=== PATIENT | male | born 1965 | race Caucasian/White ===

== ENCOUNTER 2022-09-27 10:54 | Outpatient (RCR) | payer OTHER, SELFPAY | END 2023-01-25 23:59 | disposition home or self-care (01) | PROVIDERS: PCP Family Medicine; Visit Provider Family Medicine | DX: R42 Dizziness and giddiness (principal); Z51.89 Encounter for other specified aftercare | CPT/HCPCS: 97110; 97162; 97530 ==

== ENCOUNTER 2023-06-13 08:59 | Outpatient (CLI) | payer OTHER, SELFPAY ==
--- NOTE | 2023-06-13 09:15 | MR_ITS ---
[address] [address] Phone:?[phone] Fax:?[phone] Referring Physician Information: Nicolás Avelar M.D. [address] [facility] [address] Phone:?[phone] Fax:?[phone] Patient:Betsy Soler.O.B:?1965 Sex:?Male Phone:?[phone] [facility] MRN:?[id number] Exam Date:?06/13/2023 EXAM: MRI OF THE RIGHT KNEE CLINICAL INFORMATION: The patient is a 57-year-old with right knee pain. Evaluate for medial meniscal tear. PRIOR SURGERY: None reported. COMPARISON STUDIES: Comparison is made to prior radiographs dated 06/06/2023. TECHNICAL INFORMATION: Imaging was performed on a high-field, 1.5 Blanca MR scanner. Axial proton-density and fat-suppressed T2 imaging was performed in addition to coronal proton-density, T2, and STIR imaging. Sagittal proton- density and fat-suppressed T2 imaging was also produced. FINDINGS: Articular/Extraarticular collections: Effusion: Mild to moderate. Popliteal cyst: None. Loose bodies: None. Subcutaneous and extraarticular soft tissues: Nonspecific subcutaneous soft tissue edema and/or hemorrhage can be seen along the anterior, medial, and lateral aspects of the right knee. Osseous structures: Mild reactive bony changes can be seen along the posterior and medial surfaces of the medial tibial plateau, in keeping with the meniscal tearing and chondral thinning described below. Mild reactive bony changes along the articular surfaces of the patella can be seen, in keeping with chondromalacia and chondral loss discussed below. No other bony abnormalities about the knee are present. There is no evidence for fracture, contusion, or stress injury. Ligamentous structures: ACL: Intact and normal in appearance. PCL: Intact and normal in appearance. MCL: Intact and normal in appearance. LCL: Intact and normal in appearance. Posterolateral corner: Intact and normal in appearance. Posteromedial corner: No posteromedial corner soft tissue injury. Semimembranosus and pes anserine tendons demonstrate no tendinopathy or associated bursitis. Extensor mechanism/Patellar retinacular structures: Patellar tendon: Intact, without tendinopathy. Quadriceps tendon: Tendinosis and splitting of the distal quadriceps tendon can be seen at the patellar insertion. There is no evidence for transverse tearing. Retinacula: The medial and lateral retinacula are intact. The medial patellofemoral ligament is intact. Medial compartment: Medial meniscus: The medial meniscus is abnormal in appearance. There is broad- based, complex tearing of the posterior horn, including oblique radial tearing, seen on sagittal series 5 image 22 and on coronal series 7 image 23. The area of medial meniscal tearing measures approximately 20 mm in mediolateral dimension. Additional degeneration and inferior surface tearing of the middle one third of the medial meniscus can be seen. The anterior horn appears intact. No parameniscal cyst formation is identified. Medial femoral condyle: Grade II to III chondromalacia can be seen along the weightbearing surfaces of the medial femoral condyle. Medial tibial plateau: Grade II chondromalacia can be seen along the weightbearing surfaces of the medial tibial plateau. Lateral compartment: Lateral meniscus: No evidence for lateral meniscal tearing is present. No evidence for parameniscal cyst formation can be seen. Lateral femoral condyle: No chondromalacia, chondral defect, or osteochondral abnormality. Lateral tibial plateau: Grade II to III chondromalacia can be seen along the central and posterior weightbearing surfaces of the lateral tibial plateau. Patellofemoral compartment: Patella: Full-thickness and near full-thickness chondral loss can be seen along the articular surfaces of the patellar apex and lateral facet. Underlying bony changes are present. Trochlea: Grade II to III chondromalacia can be seen along the articular surfaces of the femoral trochlea. Neurovascular: No definite neurovascular abnormalities are seen. CONCLUSION: 1. Broad-based tearing of the middle and posterior portions of the medial meniscus as described above. No lateral meniscal tearing is seen. 2. 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 3. The cruciate and collateral ligaments appear intact. 4. Mild to moderate knee joint effusion. 5. No acute bony abnormalities are identified. AEC Electronically signed on 06/13/2023 2:18:00 PM by Joshua Humphreys M.D.
== END 2023-06-13 09:00 | disposition home or self-care (01) ==
LOC: MRI 08:59
PROVIDERS: PCP Family Medicine; Visit Provider Orthopaedic Surgery
DX: M25.561 Pain in right knee (principal); S83.241A Other tear of medial meniscus, current injury, right knee, initial encounter; M94.261 Chondromalacia, right knee; M25.461 Effusion, right knee
CPT/HCPCS: 73721

== ENCOUNTER 2023-06-27 06:07 | Day surgery (SDC) | payer OTHER, SELFPAY ==
[2023-06-27] VITALS (14 sets, daily range): BP systolic 120–153; BP diastolic 53–110; PULSE 59–70; RESP 14–18; TEMP 36.2–36.6; O2SAT 93–96; BMI 47.4
[2023-06-27] MEDS: SODIUM CHLORIDE 0.9 % (FLUSH) 10 ML SYRINGE IVF (06:30)
[2023-06-27] MEDS: LACTATED RINGERS 1000 ML 1,000 ML 100 ML IV ×2 (06:30→07:52)
[2023-06-27] MEDS: CEFAZOLIN 2 GM INJ IVP (07:51)
[2023-06-27] MEDS: BUPIVACAINE 0.25% 30 ML INJECTION (08:18)
--- NOTE | 2023-06-27 08:18 | PM.ORPRC ---
Procedure Note Date of procedure: 06/27/23 Procedure: PREOPERATIVE DIAGNOSIS: Right knee medial meniscus tear POSTOPERATIVE DIAGNOSIS: Right knee medial meniscus tear NAME OF OPERATION: Right knee arthroscopic partial medial meniscectomy SURGEON: Nicolás Avelar MD APPLIED BEHAVIOR SPECIALIST: Yue Dougherty PA-C ANESTHESIA: General ESTIMATED BLOOD LOSS: 0 mL COMPLICATIONS: None SPECIMENS: None DRAINS: None PREOPERATIVE ANTIBIOTICS: Ancef 3 gram INDICATIONS: The patient is a 57-year-old with a history of right knee medial pain. MRI scan is consistent with a medial meniscus tear. Despite appropriate nonoperative management, including activity modification, antiinflammatories, [id number] pain medication, bracing, physical therapy, and injections they continue to have pain and disability. Operative intervention was offered. The risks, benefits and expected outcomes were discussed in detail. These included but were not limited to: Infection, bleeding, injury to blood vessel or nerve, venous thromboembolism. All questions were answered to their satisfaction. PROCEDURE: Spinal anesthesia was administered. The patient was placed supine on the operating room table. The right lower extremity was prepped and draped in the usual sterile fashion. The limb was exsanguinated with the Matthias bandage. The pneumatic tourniquet was inflated to 300 mmHg. A standard anterolateral portal was established. The arthroscope was introduced. The working portal was established anteromedially. Diagnostic arthroscopy was performed with findings as follows: The suprapatellar pouch is normal. Articular surface on the patella shows diffuse grade 1/2 change. Articular surface on the trochlea shows diffuse grade 2/3 change. The medial gutter is normal. The medial compartment shows focal grade 3 change on the posterior aspect of the medial femoral condyle, grade 1/2 change on the medial tibial plateau. The medial meniscus has a complex degenerative tear of the posterior horn, consisting of a small radial tear off of the root. This does not go to the capsule. There is minimal degenerative undersurface fraying. The root is intact. The notch shows the ACL to be intact. The lateral compartment shows normal articular cartilage on the lateral femoral condyle and lateral tibial plateau. The lateral meniscus is normal. The lateral gutter is normal. The posterior horn of the medial meniscus was debrided to a stable base using a combination of anamika through both portals. Unstable chondral flaps on the medial femoral condyle were debrided with the shaver through both portals, taken to a stable base. Arthroscopic instruments were removed, the portal sites were Steri-Stripped closed, the knee was infiltrated with 30 mL of 0.25% Marcaine without epinephrine. A dry dressing was applied, the tourniquet was released. Sponge and needle counts were correct x 2. The patient tolerated the procedure well. There were no apparent complications. They were carefully transferred to the hospital bed and taken to the postanesthesia care unit in satisfactory condition. PLAN: The patient will be discharged to home. They may weightbear as tolerates. Range of motion will be unrestricted. They will follow up in the office next week for a wound check.
[2023-06-27] MEDS: fentaNYL 100 MCG/2 ML inj 50 MCG IVP ×2 (08:38→08:50)
--- NOTE | 2023-06-27 08:49 | W.ANESCHARGE ---
Anesthesia Charges Start Date/Time Anesthesia Start Date: 06/27/23 Anesthesia Start Time: 07:17 Stop Date/Time Anesthesia Stop Date: 06/27/23 Anesthesia Stop Time: 08:32
--- NOTE | 2023-06-27 08:53 | W.ANESCHARGE ---
Anesthesia Charges Start Date/Time Anesthesia Start Date: 06/27/23 Anesthesia Start Time: 07:17 Stop Date/Time Anesthesia Stop Date: 06/27/23 Anesthesia Stop Time: 08:32
== END 2023-06-27 10:32 | disposition home or self-care (01) ==
PROVIDERS: PCP Family Medicine; Visit Provider Orthopaedic Surgery
PROC: (CPT 29882; principal; 2023-06-27 07:15)
DX: M23.221 Derangement of posterior horn of medial meniscus due to old tear or injury, right knee (principal)
CPT/HCPCS: 29881; 01400; J0330; J0665; J0690; J1100; J2250; J2405; J2704; J3010; J3490; J7120

== ENCOUNTER 2023-08-01 14:00 | Outpatient (RCR) | payer OTHER, SELFPAY | END 2023-11-01 08:23 | disposition home or self-care (01) | PROVIDERS: PCP Family Medicine; Visit Provider Physician Assistant | DX: Z98.890 Other specified postprocedural states (principal); Z51.89 Encounter for other specified aftercare | CPT/HCPCS: 97110; 97140; 97161 ==

== ENCOUNTER 2025-01-01 16:56 | Emergency (ER) | payer MEDICAID, SELFPAY ==
--- OUTSIDE RECORDS SUMMARY | 2025-01-01 16:58 | XMS_ITS | Clinical Summary ---
Author Organization [facility] Address [address] [place] [address] Care Team Providers Care Forensic Photographer Name Role Phone Jozef Lorenzo MD Primary Care Provider Allergies No known active allergies Medications CPAPIndications:O SA (obstructive sleep apnea) autoCPAP, heated humidifier, mask, headgear, filters and tubing. Pressure: 4-12cm/H2O Length of Need: 99 1 Device 0 05/02/19 16 Active tirzepatide, weight loss, (Zepbound) 2.5 mg/0.5 mL penIndications:Cl ass 3 severe obesity with body mass index (BMI) of 45.0 to 49.9 in adult, unspecified obesity type, unspecified whether serious comorbidity present (HC) Inject 0.5 mL (2.5 mg) subcutaneous once weekly. 2 mL 06/06/19 24 Active tirzepatide, weight loss, (Zepbound) 5 mg/0.5 mL penIndications:Cl ass 3 severe obesity with body mass index (BMI) of 45.0 to 49.9 in adult, unspecified obesity type, unspecified whether serious comorbidity present (HC) Inject 0.5 mL (5 mg) subcutaneous once weekly. 2 mL 06/15/19 24 Active tirzepatide, weight loss, (Zepbound) 7.5 mg/0.5 mL penIndications:Cl ass 3 severe obesity with body mass index (BMI) of 45.0 to 49.9 in adult, unspecified obesity type, unspecified whether serious comorbidity present (HC) Inject 0.5 mL (7.5 mg) subcutaneous once weekly. 2 mL 06/15/19 24 Active tirzepatide, weight loss, (Zepbound) 10 mg/0.5 mL penIndications:Cl ass 3 severe obesity with body mass index (BMI) of 45.0 to 49.9 in adult, unspecified obesity type, unspecified whether serious comorbidity present (HC) Inject 0.5 mL (10 mg) subcutaneous once weekly. 2 mL 06/15/19 24 Active tirzepatide, weight loss, (Zepbound) 12.5 mg/0.5 mL penIndications:Cl ass 3 severe obesity with body mass index (BMI) of 45.0 to 49.9 in adult, unspecified obesity type, unspecified whether serious comorbidity present (HC) Inject 0.5 mL (12.5 mg) subcutaneous once weekly. 2 mL 06/15/19 24 Active tirzepatide, weight loss, (Zepbound) 15 mg/0.5 mL penIndications:Cl ass 3 severe obesity with body mass index (BMI) of 45.0 to 49.9 in adult, unspecified obesity type, unspecified whether serious comorbidity present (HC) Inject 0.5 mL (15 mg) subcutaneous once weekly. 2 mL 3 06/15/19 24 Active CPAPIndications:S evere sleep apnea CPAP (E0601) machine for home use at pressure: 10-16 , Choice of mask (A7030 or A7034) w/full face cushion (A7031) x1/mo, nasal cushion (A7032) x2/mo, or nasal pillows (A7033) x 2/mo; Length of Need: 99 months; Frequency of use: Daily 1 Each 08/20/19 24 Active tadalafiL (Cialis) 20 mg tabletIndications :Erectile dysfunction, unspecified erectile dysfunction type Take 1 Tablet (20 mg) by mouth once daily if needed for Erectile Dysfunction. Take 30 minutes before sexual activity. 20 Tablet 5 11/13/19 24 Active dextroamphetamine -amphetamine (Adderall XR) 20 mg Extended-Release capsuleIndication s:Attention deficit hyperactivity disorder (ADHD), unspecified ADHD type Take 1 Capsule (20 mg) by mouth once daily. 30 Capsule 06/28/19 25 Active Active Problems Problem Noted Date Diagnosed Date Hyperlipidemia 06/06/2023 Prediabetes 11/07/2016 Obesity, Class II, BMI 35-39.9 01/23/2016 BORA 04/26/2015 AHI-87 05/02/2015 ADHD (attention deficit hype ractivity disorder), combined type 05/01/2015 Resolved Problems Problem Noted Date Diagnosed Date Resolved Date Routine adult health maintenance 08/16/2017 06/06/2023 Overview (08/16/2017): Colonoscopy 08/2017 normal, repeat in 10 years Immunizations Immunization Administration Dates Next Due COVID-19 vaccine (Moderna 100mcg/0.5mL) PF, MDV 07/01/2020,06/03/2020 Influenza, IIV3 (Age >=3 years) 03/14/2012 Influenza, IIV4 03/29/2020,04/14/2015 Influenza, IIV4 (=>6mos) MDV 01/10/2019 Tdap 10/23/2016,10/08/2013 Zoster (Shingrix-RZV, recombinant) 09/24/2020, Family History * Patient is adopted Medical History Relation Name Comments Heart Disease Father first mi mid-5 0's, second [place] upper 60's Cancer-ovarian Mother Megan white Hypertension Mother Megan white Unknown Other Anesthesia Problem No Family History Cancer-colon No Family History Cancer-prostate No Family History maybe m aternal grand father Diabetes No Family History Relation Name Status Comments Father Alive Mother Megan white Alive Other Social History Tobacco Use Types Packs/Day Years Used Date Smoking Tobacco: Never Smokeless Tobacco: Never Tobacco Cessation:Counseling Given: No Alcohol Use Standard Drinks/Week Comments Yes 2 (1 standard drink = 0.6 oz pur e alcohol) occasional PHQ-2 Answer Date Recorded PHQ-2 TOTAL SCORE 1 06/06/2023 Social Connections Answer Date Recorded Do you often feel lonely or isolated from those around you? 0 06/03/2023 Financial Resource Strain Answer Date R ecorded Difficulty of Paying Living Expenses 3 06/06/2023 Difficulty of Paying Living Expenses Not on file 06/06/2023 Food Insecurity Answer Date Recorded Do you worry your food will run out before you are able to buy more? 1 06/03/2023 Transportation Needs Answer Date Record ed Does lack of transportation keep you from medica l appointments? 1 06/03/2023 Does lack of transportation keep you from work, meetings or getting things that you need? 1 06/03/2023 Housing Stability Answer Date Recorded What is your housing situation today? 1 06/03/2023 Utilities Answer Date Recorded Do you have trouble paying f or utilities (for example, heat, electricity, water, phone)? 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 Not on file Not on file Not on file Obstetrics History Last Filed Vital Signs Vital Sign Reading Time Taken Comments Blood Pressure 148/90 06/06/2023 3:46 PM CDT Pulse 89 06/06/2023 3:46 PM CDT Temperature 36.7 C (98.1 F) 10/07/2018 3:15 PM CDT Respiratory Rate - - Oxygen Saturation 97% 06/06/2023 3:46 PM CDT Inhaled Oxygen Concentration - - Weight 150 kg (330 lb 12.8 oz) 06/06/2023 3:46 P M CDT Height 179.4 cm (5' 10.63) 06/06/2023 3:46 PM C DT Body Mass Index 46.62 06/06/2023 3:46 PM CDT Plan of Treatment Upcoming Encounters Date Type Department Care Team (Late st Contact Info) Description 01/14/2025 9:45 AM [employer]ER Office Visit [facility] [address] [place] [address] Jozef Lorenzo MD [address] [place] [address] Health Maintenance Due Date Last Done Comments Hepatitis B series for 19+ ( 1 of 3 - 19+ 3-dose series) 1985 Pneumococcal series for age 50+ (1 of 1 - PCV) 2016 BMI (ht and wt on same day) for age 18+ 06/05/2024 06/06/2023, 03/31/2021, 10/07/2018, Additional history exists Depression screening for age 12+ 06/05/2024 06/06/2023, 03/31/2021, 09/08/2018, Additional history exists Influenza Vaccine (#1) 2024 , 01/10/2019, 04/14/2015, Additional history exists Tetanus booster 10/23/2026 10/23/2016, 10/08/2013 Colonoscopy through age 75 08/16/2027 08/15/2017, Lipids for age 45-75 06/05/2028 06/06/2023, 03/31/2021, 10/07/2018, Additional history exists RSV vaccine for adults or (1 - 1-dose 75+ series) 2041 HIV for age 15-65 Completed 12/21/2013 Zoster (shingles) series for age 50+ Completed 09/24/2020, 03/29/2020 Hepatitis C screening for ag e 18-79 Completed 03/31/2021 Procedures Procedure Name Priority Date/Time Associated Diagnosis Comments LIPID PANEL W REFLEX MEASURED LDL Routine 06/06/2023 4:35 PM CDT Hyperlipidemia, unspecified hyperlipidemia type ANTI HCV Routine 03/31/2021 2:07 PM [employer]ER Need for hepatitis C screening test COLONOSCOPY 08/15/2017 11:28 AM CDT ANTI HIV 1/2 Routine 12/21/2013 1:15 PM CDT Potential exposure to STD from Last 3 Months or Most Recently Relevant to Health Maintenance Results * (ABNORMAL) LIPID PANEL W REFLEX MEASURED LDL (06/06/2023 4:35 PM CDT) Pathologist [facility] CHOLESTEROL,TOTAL 226(H) 100 - 199 mg/dL 06/07/2023 2:43 PM CDT [facility] Comment: Cholesterol, Total Reference Ranges Desirable <200 mg/dL Borderline 200-239 mg/dL High >=240 mg/dL TRIGLYCERIDES 87 <150 mg/dL 06/07/2023 2:43 PM CDT [facility] HDL CHOLESTEROL 51 >40 mg/dL 2:43 PM CDT [facility] NON-HDL CHOLESTEROL 175(H) <145 mg/dl 06/07/2023 2:43 PM CDT [facility] CHOL/HDL RATIO 4.43 <4.50 06/07/2023 2:43 PM CDT [facility] LDL CHOLESTEROL 158(H) <=130 mg/dL 06/07/2023 2:43 PM CDT [facility] VLDL CHOLESTEROL 17 <=30 mg/dL 06/07/2023 2:43 PM CDT [facility] PROVIDER ORDERED STATUS RANDOM 06/07/2023 2:43 PM CDT [facility] Blood BLOOD SPECIMEN / Unknown Venipuncture / Unknown 06/06/2023 4:35 PM CDT 06/06/2023 4:35 PM CDT us Jozef Lorenzo MD CHEMISTRY Final Result [facility] [address] [place] [address], [place] * ANTI HCV (03/31/2021 2:07 PM [employer] MIXER) HEPATITIS C ANTIBODY Non-React adriane Non-React adriane 03/31/2021 9:11 PM [employer]OR MIXER [facility] Comment:Antibodies to HCV no t detected; does not exclude the possibility of exposure to HCV. Blood BLOOD SPECIMEN / Unknown Venipuncture / Unknown 03/31/2021 2:07 PM [employer]ER 03/31/2021 2:08 PM [employer]ER us Jozef Lorenzo MD SEND OUTS Final Result [facility] [address] [place] [address], [place] * COLONOSCOPY (08/15/2017 11:28 AM CDT) 08/15/2017 11:2 8 AM CDT Narrative Transcriptions Matthias Lemus MD - 08/15/2017 11:55 AM CDT Patient Name: Kurtis Ramirez Procedure Date: 08/15/2017 Gender: Male Date of : 1965 Admit Type: Outpatient Procedure: Colonoscopy Proceduralist: Matthias Lemus MD , Rosemary Cota (Nurse) Referring MD: Jozef Lorenzo Indications/Pre-Op Diagnosis: Screening for colorectal malignant neoplasm, This is the patient's first colonoscopy Medications: Fentanyl 100 micrograms IV, Midazolam 4 mgIV, The level of sedation administered wasmoderate Procedure Description: The patient had risks, benefits and alternatives explained to andgave informed consent. The patient had a stable cardiopulmonary status and judged an adequate candidate for conscious sedation. The [id number]-[id number] was passed through the anus and advanced tothe cecum, identified by appendiceal orifice and ileocecal valve. The colonoscopy was performed without difficulty. The patient toleratedthe procedure well. The quality of the bowel preparation was good. The ileocecal valve, appendiceal orifice, and rectum were photographed. Complications: No immediate complications. Estimated Blood Loss & Specimen: Estimated blood loss: none. Specimen collected - Yes and sent to Laboratory Findings: The perianal and digital rectal examinations were normal. A 3 mm polyp was found in the ascending colon. The polyp was sessile. The polyp was removed with a cold biopsy forceps. Resection and retrieval were complete. The exam was otherwise without abnormality on direct and retroflexion views. Impressions/Post-Op Diagnosis: - One 3 mm polyp in the ascending colon, removed with a cold biopsy forceps. Resected and retrieved. - The examination was otherwise normal on direct and retroflexionviews. Recommendation: - Patient has a contact number available for emergencies. The signsand symptoms of potential delayed complications were discussed with the patient. Return to normal activities tomorrow. Written discharge instructions were provided to the patient. - Resume previous diet. - Continue present medications. - Await pathology results. - Repeat colonoscopy is recommended. The colonoscopy date will be determined after pathology results from today's exam become available for review. Moderate Sedation: Moderate (conscious) sedation was administered by the endoscopy nurse and supervised by the endoscopist. The following parameters were monitored: oxygen saturation, heart rate, respiratory rate, blood pressure, adequacy of pulmonary ventilation and reponse to care. [facility] and nursing notes for moderate sedation details. Total physician intraservice time was 17 minutes. Matthias Lemus MD 08/15/2017 11:54:54 AM This report has been signed electronically. Note Initiated On: 08/15/2017 11:28 AM Procedure Code(s): --- Professional --- 06066, Colonoscopy, flexible; with biopsy, single or multiple Diagnosis Code(s): --- Professional --- Z12.11, Encounter for screening formalignant neoplasm of colon D12.2, Benign neoplasm of ascending colon CPT copyright 2017 [employer]. All rights reserved. The codes documented in this report are preliminary and upon health information coder reviewmay be revised to meet current compliance requirements. Scope In: 11:36:10 AM Scope Withdrawal Time 0 hours 11 minutes 54 seconds Scope Out: 11:51:17 AM us Matthias Lemus MD PROCEDURE ORD Final Res ult * ANTI HIV 1/2 (12/21/2013 1:15 PM CDT) HIV-1/HIV-2 ANTIBODY Non-Reacti ve Non-Reacti ve 12/21/2013 7:55 PM CDT [facility] Blood specimen (specimen) BLOOD SPECIMEN / Unknown Venipuncture / Unknown 12/21/2013 1:15 PM CDT 12/21/2013 1:15 PM CDT Narrative [facility] - 12/21/2013 7:55 PM CDT HIV-1 p24 and HIV-1/HIV-2 Ab not detected us Moody Belcher DO SEND OUTS Final Result [facility] [address] [place] [address], from Last 3 Months or Most Recently Relevant to Health Maintenance Insurance [facility] [employer] Member Subscriber Plan / Payer (Ef fective for All Dates) Name:Kurtis Ramirez Relation to Subscriber:Self Name:Kurtis Ramirez Payer ID:Not on file Group ID:Not on file Type:Not on file [id number] obed renteria Address: [address] [place] [address] Care Teams Forensic Photographer Relationship Specialty Start Date End Date Jozef Lorenzo MD [address] [place] [address] PCP - General 05/27/07
[2025-01-01 17:04] VITALS: BP 191/96; PULSE 66; RESP 18; TEMP 36.8; O2SAT 99; BMI 42.9
--- NOTE | 2025-01-01 17:20 | CRLHL7_ITS ---
For Patients: As a result of the Century Cures Act, medical imaging exams and procedure reports are released immediately into your electronic medical record. You may view this report before your referring provider. If you have questions, please contact your health care provider. INDICATION: Right lower flank pain. Technique: : CT abdomen and pelvis acquired with 150 cc Isovue 370 IV contrast. COMPARISON: None. FINDINGS: Lower chest: 0.2 centimeter pulmonary nodule seen in the left medial lower lobe seen on series 3 image 16. Liver: Hepatic cysts. Gallbladder and bile ducts: Unremarkable Pancreas: Mild pancreatic atrophy. Spleen: Unremarkable Adrenal glands: Mild left adrenal gland nodular thickening. Kidneys: Right renal cyst and subcentimeter hypodense lesion, too small to characterize. Moderate right hydronephrosis with possible 0.2 centimeter obstructing stone at the ureteral vesicular junction seen on series 2 image 130. Several punctate nonobstructing stones in the right kidney measuring up to 0.2 centimeters. Heterogeneous enhancement of the right kidney, which could be reflective of pyelonephritis. No left renal stones. No hydronephrosis. GI tract: Hyperdensities within the gastric fundus, which could be reflective of ingested material. Extensive sigmoid colonic diverticulosis. Normal appendix. Vasculature: Abdominal aorta is normal in caliber. Lymph nodes: No lymphadenopathy. Peritoneum/Abdominal Wall: Unremarkable. No sign of mass or infiltration. No free air or significant free fluid. Pelvis: Prosthetic calcifications. Bones: No acute osseous findings. Intervertebral body spacers at the L4-L5 and L5-S1 level. IMPRESSION: Possible 0.2 centimeter obstructing stone at the right ureterovesicular junction. There is at least moderate hydronephrosis with heterogeneous enhancement of the right kidney, which could be reflective of pyelonephritis. Several nonobstructing punctate right renal stones. 0.2 centimeter pulmonary nodule in the left middle lower lobe. SOCIETY GUIDELINES - SOLID NODULES: SINGLE LOW RISK - nodule less than 6 mm: No routine follow-up. - nodule 6-8 mm: CT at 6-12 months, then consider CT at 18-24 months. - nodule greater than 8 mm: Consider CT at 3 months, PET/CT or tissue sampling. SINGLE HIGH RISK - nodule less than 6 mm: Optional CT at 12 months. - nodule 6-8 mm: CT at 6-12 months, then CT at 18-24 months. - nodule greater than 8 mm: Consider CT at 3 months, PET/CT or tissue sampling. MULTIPLE LOW RISK - nodule less than 6 mm: No routine follow-up. - nodule 6-8 mm: CT at 3-6 months, then consider CT at 18-24 months. - nodule greater than 8 mm: CT at 3-6 months, then consider CT at 18-24 months. MULTIPLE HIGH RISK - nodule less than 6 mm: Optional CT at 12 months. - nodule 6-8 mm: CT at 3-6 months, then at 18-24 months. - nodule greater than 8 mm: CT at 3-6 months, then at 18-24 months. Please note that all CT scans at this facility use dose modulation, iterative reconstruction, and/or weight-based dosing when appropriate to reduce radiation dose to as low as reasonably achievable. Dictated by Subhash Page MD @ 01/01/2025 6:56:40 PM (Electronically Signed)
--- NOTE | 2025-01-01 17:28 | ED_ITS ---
HPI - General Adult General Date Seen: 01/01/25 Chief complaint: Flank Pain Stated complaint: Lower abdominal pain Time Seen by Provider: 01/01/25 17:08 Source: patient Mode of arrival: ambulatory Limitations: no limitations History of Present Illness HPI narrative: Patient is a 59-year-old male with no pertinent medical issues not currently on medication presenting to the emergency department for right low flank and right lower quadrant abdominal pain. He states he 1st noticed the right low flank pain this morning 15:00 and has been gradually getting worse throughout the day. Does state he gets some mild relief with a hot shower. Pain has been radiating to his right lower quadrant so he is concerned about appendicitis. States he has no previous abdominal surgeries. No previous abdominal issues at all. Has had some nausea but has not vomited at all. Has not noticed any diarrhea or constipation. Denies any chest pain or shortness of breath. States he has never had pain like this before. Describes as a sharp stabbing pain worse in his right low flank. Denies dysuria, polyuria, weakness, numbness. No other concerns noted at this time. Related Data Home Medications ?Medication ?Instructions ?Recorded ?Confirmed No Known Home Medications 01/01/2512/04 Allergies Allergy/AdvReac Type Severity Reaction Status Date / Time No Known Drug Allergies Allergy Verified 01/01/25 17:10 Review of Systems Status of ROS: Reports: 10 or more systems reviewed and unremarkable except as noted in History and below [facility] Medical History Tendon injury Laceration Allergic rhinitis ?J30.9 - Allergic rhinitis, unspecified (ICD-10) Mixed hyperlipidemia ?E78.2 - Mixed hyperlipidemia (ICD-10) Vertigo ?R42 - Dizziness and giddiness (ICD-10) BORA (obstructive sleep apnea) ?G47.33 - Obstructive sleep apnea (adult) (pediatric) (ICD-10) Prediabetes ?R73.03 - Prediabetes (ICD-10) ADHD ?F90.9 - Attention-deficit hyperactivity disorder, unspecified type (ICD-10) Foot laceration ?S91.319A - Laceration without foreign body, unspecified foot, initial enc ounter (ICD-10) Surgical History S/P arthroscopic partial medial meniscectomy of right knee (06/27/23) ?Z98.890 - Other specified postprocedural states (ICD-10) ?Z87.828 - Personal history of other (healed) physical injury and trauma (ICD-10) Hx of wisdom tooth extraction ?K08.409 - Partial loss of teeth, unspecified cause, unspecified class (ICD- 10) History of vasectomy (2007) ?Z98.52 - Vasectomy status (ICD-10) History of carpal tunnel surgery of right wrist (01/24/16) ?Z98.890 - Other specified postprocedural states (ICD-10) H/O arthroscopy of left knee (10/09/18) ?Z98.890 - Other specified postprocedural states (ICD-10) H/O Spinal surgery (08/19/03) ?Z98.890 - Other specified postprocedural states (ICD-10) Social History Smoking Status: Never smoker Do you use any of these nicotine containing products: None Second hand tobacco smoke exposure: No How often do you have a drink containing alcohol: monthly or less AUDIT-C Alcohol total score: 1 Non-prescribed substance use: denies use Caffeine: Yes Exam Narrative: Exam Narrative: Const: Well-nourished, Well-developed, in moderate distress Eyes: No conjunctival injection, and symmetrical lids HENT: Atraumatic external nose and ears. Moist mucous membranes. Neck: Symmetric, trachea midline, No thyromegaly. CVS: RRR, No murmurs or gallops. Peripheral pulses 2+ and equal in all extremities RESP: Unlabored respiratory effort. Clear to auscultation bilaterally. GI: Right lower quadrant tenderness, Nondistended, No rebound or guarding. Right low flank tenderness MSK:Extremities w/o deformity, Normal Active ROM Skin: Warm, Dry. No rashes or lesions. Neuro: Normal Muscle tone, No focal neurological deficits. Psych: Awake, Alert, & Oriented x3. Appropriate mood and affect. Const: Vital Signs, click to edit/add: Vital Signs - 24 hr 01/01/25 17:04 01/01/25 18:50 Temperature 98.2 F Pulse Rate 71 Pulse Rate [Right Pulse Oximeter] 66 Respiratory Rate 18 Blood Pressure 147/93 H Blood Pressure [Ri ght Upper Arm] 191/96 H Pulse Oximetry 99 97 Oxygen Delivery Me thod Room Air Course Vital Signs Vital signs: Initial Vital Signs Temperature 98.2 F 01/01/25 17:04 Temperature Source Temporal Artery Scan 01/01/25 17:04 Pulse Rate 66 01/01/25 17:04 Pulse Rhythm Regular 01/01/25 17:04 Pulse Strength 3+ Normal 01/01/25 17:04 Respiratory Rate 18 01/01/25 17:04 Blood Pressure 191/96 H 01/01/25 17:04 Blood Pressure Mean 127 H 01/01/25 17:04 Blood Pressure Position Sitting 01/01/25 17:04 Pulse Oximetry 99 01/01/25 17:04 Oxygen Delivery Method Room Air 01/01/25 17:04 Vital Signs Temperature 98.2 F 01/01/25 17:04 Pulse Rate 66 01/01/25 17:04 Respiratory Rate 18 01/01/25 17:04 Blood Pressure 191/96 H 01/01/25 17:04 Pulse Oximetry 99 01/01/25 17:04 Oxygen Delivery Method Room Air 01/01/25 17:04 Temperature 98.2 F 01/01/25 17:04 Pulse Rate 71 01/01/25 18:50 Respiratory Rate 18 01/01/25 17:04 Blood Pressure 147/93 H 01/01/25 18:50 Pulse Oximetry 97 01/01/25 18:50 Oxygen Delivery Method Room Air 01/01/25 17:04 Medications Administered Medications: Discontinued Medications Generic Name Dose Route Start Last Admin Trade Name Freq PRN Reason Stop Dose Admin Sodium Chloride 1,000 mls @ 1,000 mls/hr 01/01/25 18:30 01/01/25 18:29 0.9 % Sodium Chloride 1000 Ml IV 01/01/25 19:29 1,000 mls/hr .Q1H EDIE Administration Ketorolac Tromethamine 15 mg 01/01/25 18:24 01/01/25 18:31 Ketorolac 15 Mg/Ml Inj IVP 01/01/25 18:25 15 mg ONCE ONE Administration Morphine Sulfate 4 mg 01/01/25 17:20 01/01/25 17:44 Morphine 4 Mg/Ml Inj IVP 01/01/25 17:21 4 mg ONCE ONE Administration Morphine Sulfate 4 mg 01/01/25 18:22 01/01/25 18:30 Morphine 4 Mg/Ml Inj IVP 01/01/25 18:23 4 mg ONCE ONE Administration Ondansetron HCl 4 mg 01/01/25 17:20 01/01/25 17:46 Ondansetron 2 Mg/Ml Inj IVP 01/01/25 17:21 4 mg ONCE ONE Administration Tamsulosin HCl 0.4 mg 01/01/25 18:22 01/01/25 18:30 Tamsulosin Hcl 0.4 Mg Capsule PO 01/01/25 18:23 0.4 mg ONCE ONE Administration Medical Decision Making MDM Narrative Medical decision making narrative: Patient is a 59-year-old male presenting for right low flank and right lower quadrant abdominal pain. The differential diagnosis of flank pain including vascular causes such as aortic aneurysm, renal vascular issues, aortic dissection, mesenteric ischemia, nephrolithiasis, ureter stricture, pyelonephritis, along with several other GI and causes. His vital signs are otherwise stable I have low concern for lack dissection or AAA rupture. Based on his symptoms this soon this is most likely urolithiasis. S the pain does radiate to the right lower quadrant will also evaluate him for appendicitis. Will do CT scan with IV contrast. Also check CBC, CMP, urinalysis. Morphine given for pain and Zofran for nausea. Patient's lab work returned with a white count elevated at 16.21. No other clear signs of infection. Urinalysis does not appear infected at this time. Creatinine is 1.4. Most recent creatinine I can find is from June 2023 and was 0.96. Does not meet criteria for EFFIE. Elevated white count very well could be from stress reactions from him being in pain all day. He was also nauseated and does states he vomited once due to the pain. CT scan reviewed by myself and the radiologist shows what appears to be a 2 mm obstructing stone at the right ureteral vesicular junction. There is moderate hydronephrosis heterogeneous enhancement of the right kidney which could be pyelonephritis. His flank pain is more in his low flank and not having much CVA tenderness. Is not having a fever and I do not believe he has pyelonephritis at this time. I do not believe he has infected kidney stone. He is feeling better after the 2nd dose of morphine and Toradol. I spoke to him about the findings. I will still treat him for possible pyelonephritis as, but I do not think he truly has 1 I would rather start him on antibiotics than let it infection linger if it is there. He is agreeable to this plan. Cipro, Toradol, Zofran, oxycodone all prescribed be instymeds. Flomax sent to his pharmacy. Lab Data Labs: Lab Results 01/01/25 01/01/25 01/01/25 Range/Units 17:20 17:40 18:12 WBC 16.21 H (4.50-11.00) K/uL RBC 5.40 (4.30-5.90) m/uL Hgb 16.6 (13.5-17.5) gm/dL Hct 49.3 (37.0-53.0) % MCV 91 (80-100) fL MCH 31 (26-34) pg MCHC 34 (32-36) gm/dL RDW Coeff of Otoniel 12.6 (11.5-15.5) % Plt Count 280 (140-440) K/uL Neut % (Auto) 77.2 H (42.0-72.0) % Lymph % (Auto) 13.1 L (20-44) % [place] % (Auto) 9.2 (0.0-11.0) % Eos % (Auto) 0.1 (0.0-7.0) % Baso % (Auto) 0.2 (0.0-3.0) % Neut # (Auto) 12.50 H (1.7-7.0) K/uL Lymph # (Auto) 2.10 (0.90-2.90) K/uL [place] # (Auto) 1.50 H (0.00-0.90) K/UL Eos # (Auto) 0.00 (0.00-0.50) K/uL Baso # (Auto) 0.00 (0.00-0.30) K/uL Abs Immat Gran (auto) 0.00 (0.00-0.30) K/uL Imm/Tot Granulo (auto) 0.2 % Sodium 136 (135-149) mmol/L Potassium 4.5 (3.6-5.1) mmol/L Chloride 102 (96-114) mmol/L Carbon Dioxide 25 (20-32) mmol/L Anion Gap 9 (7-15) mEq/L BUN 18 (7-30) mg/dL Creatinine 1.4 (0.5-1.5) mg/dL Estimated Creat Clear 63.13 Estimated GFR 58 ml/min Glucose 119 H (60-115) mg/dL Calcium 10.1 (8.4-10.6) mg/dL Total Bilirubin 1.3 (0.1-1.5) mg/dL AST 43 H (12-35) U/L ALT 36 (4-50) U/L Alkaline Phosphatase 89 (40-150) U/L Total Protein 8.8 H (6.0-8.3) g/dL Albumin 4.6 (3.3-5.0) g/dL Urine Color Yellow (Yellow) Urine Appearance Clear (Clear) Urine pH 8.5 (5.0-8.5) Ur Specific [place] 1.015 (1.000-1.030) Urine Protein Trace A (Negative) Urine Glucose (UA) Negative (Negative) Urine Ketones Negative (Negative) Urine Blood Trace-intact A (Negative) Urine Nitrite Negative (Negative) Urine Bilirubin Negative (Negative) Urine Urobilinogen 0.2 (0.2-1.0) Ur Leukocyte Esterase Negative (Negative) Urine RBC 0-2 (0-2) Urine WBC 2-5 (0-5) Ur Squamous Epith Cells None (None-Few) Urine Bacteria Few A (None) POC Creatinine 1.6 H (0.6-1.3) mg/dl Imaging Data CT scan abdomen and pelvis: Attestation: I have reviewed the pertinent imaging results. Radiologist's impression: Possible 0.2 centimeter obstructing stone at the right ureterovesicular junction. There is at least moderate hydronephrosis with heterogeneous enhancement of the right kidney, which could be reflective of pyelonephritis. Several nonobstructing punctate right renal stones. 0.2 centimeter pulmonary nodule in the left middle lower lobe. SOCIETY GUIDELINES - SOLID NODULES: SINGLE LOW RISK - nodule less than 6 mm: No routine follow-up. - nodule 6-8 mm: CT at 6-12 months, then consider CT at 18-24 months. - nodule greater than 8 mm: Consider CT at 3 months, PET/CT or tissue sampling. SINGLE HIGH RISK - nodule less than 6 mm: Optional CT at 12 months. - nodule 6-8 mm: CT at 6-12 months, then CT at 18-24 months. - nodule greater than 8 mm: Consider CT at 3 months, PET/CT or tissue sampling. MULTIPLE LOW RISK - nodule less than 6 mm: No routine follow-up. - nodule 6-8 mm: CT at 3-6 months, then consider CT at 18-24 months. - nodule greater than 8 mm: CT at 3-6 months, then consider CT at 18-24 months. MULTIPLE HIGH RISK - nodule less than 6 mm: Optional CT at 12 months. - nodule 6-8 mm: CT at 3-6 months, then at 18-24 months. - nodule greater than 8 mm: CT at 3-6 months, then at 18-24 months. Please note that all CT scans at this facility use dose modulation, iterative reconstruction, and/or weight-based dosing when appropriate to reduce radiation dose to as low as reasonably achievable. Dictated by Subhash Page MD @ 01/01/2025 6:56:40 PM Discharge Plan Discharge Clinical Impression: Urolithiasis Qualifiers: Urinary calculus location: ureter Qualified Code(s): N20.1 - Calculus of ureter Patient Disposition: Home, Self-Care Condition: Improved Instructions: How to Strain Your Urine (ED), Ureteral Stones (ED) Additional Instructions: You do have a small stone that should pass on its own. This is likely what is causing all of your symptoms. Take Toradol, oxycodone, Tylenol for your pain. You take the Toradol every 6 hours and the oxycodone every 4-6 hours. Tylenol also be taken every 6 hours. While taking the Toradol do not take other NSAIDs such as naproxen or ibuprofen as they are the same class of drugs. Use the Zofran as needed for nausea. While I do not believe you have a kidney infection at this time there is some things that show some concern so will print of lead treat you with antibiotics. Take the Cipro as directed. Go to your pharmacy to greens picker the Flomax tomorrow If you start developing fevers, worsening pain or any systemic symptoms have a very low threshold to return for re-evaluation. A pulmonary nodule was also seen on your CT scan. These are commonly seen. You will need to follow-up with your primary care provider to determine if you need follow-up imaging or not. Prescriptions: No Action No Known Home Medications Follow Up/Referrals: Jozef Lorenzo MD [Primary Care Provider, Family Practice] Stand Alone Forms: [employer] Info Instructions
[2025-01-01] MEDS: MORPHINE 4 MG/ML INJ IVP ×2 (17:44→18:30)
[2025-01-01] MEDS: ONDANSETRON 2 MG/ML inj 4 MG IVP (17:46)
[2025-01-01 17:54] LABS: Creatinine, Point-of-Care* 1.6 mg/dl (0.6-1.3)
[2025-01-01 17:59] LABS: Hematocrit* 49.3 % (37.0-53.0); Hemoglobin* 16.6 gm/dL (13.5-17.5); Immature Granulocytes Pct Auto 0.2 %; Mean Corpuscular HGB Conc 34 gm/dL (32-36); Mean Corpuscular Hemoglobin 31 pg (26-34); Mean Corpuscular Volume 91 fL (80-100); RDW Coefficient of Variation % 12.6 % (11.5-15.5); Red Blood Count* 5.40 m/uL (4.30-5.90); White Blood Count* 16.21 K/uL (4.50-11.00)
[2025-01-01 18:00] LABS: Immature Granulocytes Abs Auto 0.00 K/uL (0.00-0.30); Lymphocytes Absolute Auto 2.10 K/uL (0.90-2.90)
[2025-01-01 18:01] LABS: Slide Review Reflex No
[2025-01-01 18:13] LABS: Albumin* 4.6 g/dL (3.3-5.0); Chloride* 102 mmol/L (96-114); Potassium* 4.5 mmol/L (3.6-5.1); Sodium* 136 mmol/L (135-149)
[2025-01-01 18:16] LABS: Alanine Aminotransferase* 36 U/L (4-50); Alkaline Phosphatase* 89 U/L (40-150); Anion Gap 9 mEq/L (7-15); Aspartate Amino Transferase* 43 U/L (12-35); Bilirubin Total* 1.3 mg/dL (0.1-1.5); Blood Urea Nitrogen* 18 mg/dL (7-30); Carbon Dioxide* 25 mmol/L (20-32); Creatinine* 1.4 mg/dL (0.5-1.5); Est. Creatinine Clearance* 63.13; Estimated Glomerular Filt Rate 58 ml/min; Total Protein* 8.8 g/dL (6.0-8.3)
[2025-01-01 18:17] LABS: Calcium* 10.1 mg/dL (8.4-10.6); Glucose* 119 mg/dL (60-115)
[2025-01-01 18:23] LABS: Appearance Urine Clear (Clear)
[2025-01-01] MEDS: TAMSULOSIN HCL 0.4 MG CAPSULE PO (18:30)
[2025-01-01 18:50] VITALS: BP 147/93; PULSE 71; O2SAT 97
== END 2025-01-01 19:57 | disposition home or self-care (01) ==
PROVIDERS: Emergency Provider Student in an Organized Health Care Education/Training Program; PCP Family Medicine
DX: N20.9 Urinary calculus, unspecified (principal); R91.1 Solitary pulmonary nodule
CPT/HCPCS: 36415; 74177; 80053; 81001; 82565; 85025; 87086; 96361; 96374; 96375; 99284; 99285; A9270; J1885; J2270; J2405; J7030; Q9967